=== PATIENT | male | born 1955 | race Caucasian/White ===

== ENCOUNTER 2017-06-10 09:28 | Outpatient (RCR) | payer OTHER ==
[2017-06-16] MEDS ORDERED: IOPAMIDOL 76% 75 ML INFUS BTL 75 ML ONE (12:53)
[2017-06-16] MEDS ORDERED: IOPAMIDOL 76% 50 ML INFUS BTL 50 ML ONE (12:56)
[2017-06-16] MEDS ORDERED: NS 0.9% 150 ML BAG 150 ML ONE (12:56)
== END 2017-06-16 18:00 | disposition home or self-care (01) ==
LOC: CT 09:28
PROVIDERS: ATTEND Urology
DX: R97.20 Elevated prostate specific antigen [PSA] (principal); N39.0 Urinary tract infection, site not specified; K76.0 Fatty (change of) liver, not elsewhere classified; K57.30 Diverticulosis of large intestine without perforation or abscess without bleeding; M43.07 Spondylolysis, lumbosacral region
CPT/HCPCS: 36415; 74178; 82565; 84153; Q9967

== ENCOUNTER → 2017-06-16 | Outpatient (CLI) | payer OTHER ==
--- NOTE | 2017-06-16 14:38 | RADIOLOGY IMAGING REPORT ---
FACILITY: [facility] [place] PATIENT NAME: Ghassan Sherwood : 1955 MR: [id number] V: [id number] EXAM DATE: ORDERING PHYSICIAN: ALEM BERMEO TECHNOLOGIST: Location: [facility] Patient: Ghassan Sherwood : 1955 Visit/Account:[id number] Date of Sevice: 06/16/2017 ABDOMEN/PELVIS W/WO CONTRAST HISTORY: Elevated PSA, UTIs TECHNIQUE: Axial images acquired through the abdomen/pelvis both with and without IV contrast.. Zo nal and sagittal reformatting also performed. Dose Lowering Technique One of the following dose optimization techniques was utilized in the performance of this exam: Autom ated exposure control; adjustment of the mA and/or kV according to the patient's size; or use of an i terative reconstruction technique. Specific details can be referenced in the facility's radiology C T exam operational policy. CONTRAST: 125 mL Isovue-[id number] COMPARISON: None. FINDINGS: Visualized lung bases: Negative. Hepatobiliary: Diffuse hepatic steatosis and hepatomegaly with liver measuring 27 cm in length Spleen: Negative. Adrenals: Mild adrenal thickening Pancreas: Negative. Kidneys ureters and bladder: No demonstration of urolithiasis, hydronephrosis or hydroureter Genitalia: Several punctate calcifications within the prostate gland which impinges mildly upon the floor the bladder GI: There is diverticulosis of the left-sided colon although no CT evidence of acute diverticulitis. The appendix is visualized and does not appear inflamed Vessels/spaces/nodes: There are mild vascular calcifications present Bones/soft tissues: There are moderate spondylotic changes at L5-S1. There are sclerotic changes se en of both SI joints. Tiny punctate sclerotic focus in the right femoral head is likely a bone islan d. Tiny sclerotic focus in the right iliac bone also likely a bone island Additional findings: None pertinent. IMPRESSION: Hepatomegaly with diffuse hepatic steatosis Diverticulosis left-sided colon although no CT evidence of acute diverticulitis There are moderate spondylotic changes L5-S1 Sclerotic changes seen of both SI joints likely arthritic in nature. Tiny punctate sclerotic foci in the right femoral head and right iliac bone likely bone islands although given the clinical history bone scan may be helpful Report Dictated By: Enma Stone MD at 06/16/2017 2:24 PM Report E-Signed By: Enma Stone MD at 06/16/2017 2:35 PM RASHMIN:NIC
== END ==
LOC: CT 00:57
PROVIDERS: ATTEND Urology
DX: K57.30 Diverticulosis of large intestine without perforation or abscess without bleeding (principal); K76.0 Fatty (change of) liver, not elsewhere classified; M47.817 Spondylosis without myelopathy or radiculopathy, lumbosacral region

== ENCOUNTER → 2017-07-29 | Outpatient (REF) | payer OTHER | LOC: ZZSENDIN 12:00 | PROVIDERS: ATTEND Urology | DX: C61 Malignant neoplasm of prostate (principal) | CPT/HCPCS: 88305; 88344 ==